=== PATIENT | male | born 1970 | race Caucasian/White ===

== ENCOUNTER → 2019-10-10 | Outpatient (CLI) | payer OTHER ==
[~2019-10-10] MED LIST: ATORVASTATIN CA40 MG PO; BENTYL 10 MG CA10 M1 PO; CIPRO500 MG PO; CLARITIN10 MG PO; DIOVAN 80 MG TA80 M1 PO; DIOVAN40 MG PO; FLAGYL500 MG PO; HYDROCHLOROTH12.5 M1 PO; HYDROCHLOROTHIA25 M2 PO; HYDROCODON-ACE1 EAC7 PO; LIPITOR80 MG PO; NORCO 5-325 TA1 EACH PO; ONDANSETRON HCL4 M2 PO; PERCOCET 5-3251 EACH PO; PROBIOTIC1 EAC1 PO; SINGULAIR 10 MG10 M1 PO; TAMSULOSIN HCL0.4 MG PO; ZOFRAN ODT4 MG PO
== END ==
LOC: LAB 08:34
PROVIDERS: ATTEND Anesthesiology
DX: Z01.818 Encounter for other preprocedural examination (principal); Z11.59 Encounter for screening for other viral diseases